=== PATIENT | female | born 1990 | race Caucasian/White ===

== ENCOUNTER 2021-02-10 03:14 | Emergency (ER) | payer BC, MEDICAID, OTHER ==
[~2021-02-10] VITALS: Ht 154.9 cm; Wt 79.4 kg
[2021-02-10 04:26] LABS: Basophils # (auto) 0 10 ^3/uL (0-0.2); Basophils % (auto) 0.2 % (0.0-2.0); Eosinophils # (auto) 0 10 ^3/uL (0-0.8); Eosinophils % (auto) 0.6 % (0.0-7.0); Hematocrit 41.4 % (36.0-46.0); Lymphocytes # (auto) 1.5 10 ^3/uL (0.4-5.4); Lymphocytes % (auto) 24.6 % (10.0-50.0); Mean Corpuscular Hemoglobin 29.7 pg (28.0-32.0); Mean Corpuscular Hgb Conc. 33.8 g/dL (32.0-36.0); Mean Corpuscular Volume 87.7 fL (80.0-100.0); Monocytes # (auto) 0.5 10 ^3/uL (0-1.3); Monocytes % (auto) 8.8 % (0.0-12.0); Neutrophils % (auto) 65.8 % (37.0-80.0); Nucleated Red Blood Cells % 0.1 %; Red Blood Cells 4.72 10^6/uL (4.0-5.20); Red Cell Distribution Width 14.2 % (11.8-14.3); White Blood Cell 6.1 10^3/uL (4.4-10.8)
[2021-02-10 04:33] LABS: Urine Bacteria FEW /hpf (None Seen); Urine Blood Negative /uL (Negative); Urine Mucus FEW (None Seen); Urine Specific Gravity 1.003 (1.001-1.035); Urine WBC 1 /hpf (0 - 5)
[2021-02-10 04:40] LABS: BUN/Creatinine Ratio 13.1; Calcium 8.7 mg/dL (8.5-10.1); Magnesium 2.2 mg/dL (1.6-2.6); Potassium 3.7 mmol/L (3.5-5.1)
[2021-02-10 04:46] LABS: Bilirubin, Total 0.3 mg/dL (0.2-1.0); Total Protein 8.5 g/dL (6.4-8.2)
[2021-02-10 04:54] LABS: Beta HCG, Quantitative < 1 mlU/mL (1-3); Lactate Dehydrogenase 275 U/L (84-246)
[2021-02-10] MEDS ORDERED: cefTRIAXone 1GM/50ML D5W 50 ML IV ONE (07:15)
[2021-02-10] MEDS ORDERED: DexAMETHasone SOD PHOS 10MG/1ML VIAL INJ IV ONE (07:15)
[2021-02-10] MEDS ORDERED: AZITHROMYCIN 500MG/ 250ML 250 ML IV ONE (07:15)
[2021-02-10 10:00] VITALS: BP 111/76
== END 2021-02-10 10:28 | disposition home or self-care (01) ==
LOC: ER 03:14
DX: J45.909 Unspecified asthma, uncomplicated (principal); J06.9 Acute upper respiratory infection, unspecified; R00.0 Tachycardia, unspecified; Z20.822 Contact with and (suspected) exposure to COVID-19
CPT/HCPCS: 36415; 71045; 80053; 81001; 82728; 83605; 83615; 83735; 84484; 84702; 85025; 85379; 87040; 87426; 93005; 96365; 96366; 96367; 96375; 99285; C9803; J0456; J0696; J1100; U0003

== ENCOUNTER 2021-10-30 00:56 | Emergency (ER) | payer MEDICAID ==
[~2021-10-30] VITALS: Ht 152.4 cm; Wt 81.8 kg
[2021-10-30 01:18] VITALS: BP 136/82
[2021-10-30 01:49] LABS: Urine Bacteria FEW /hpf (None Seen); Urine Blood Negative /uL (Negative); Urine Specific Gravity 1.005 (1.001-1.035); Urine WBC 1 /hpf (0 - 5)
[2021-10-30 02:12] LABS: BUN/Creatinine Ratio 14.5; Magnesium 2.3 mg/dL (1.6-2.6); Potassium 3.7 mmol/L (3.5-5.1)
[2021-10-30 02:26] LABS: Bilirubin, Total 0.3 mg/dL (0.2-1.0)
[2021-10-30 02:30] LABS: Basophils # (auto) 0 10 ^3/uL (0-0.2); Basophils % (auto) 0.3 % (0.0-2.0); Eosinophils # (auto) 0.1 10 ^3/uL (0-0.8); Eosinophils % (auto) 1.5 % (0.0-7.0); Hemoglobin 13.4 g/dL (12.2-16.2); Lymphocytes # (auto) 2.5 10 ^3/uL (0.4-5.4); Lymphocytes % (auto) 29.1 % (10.0-50.0); Mean Corpuscular Hemoglobin 29.1 pg (28.0-32.0); Mean Corpuscular Hgb Conc. 32.7 g/dL (32.0-36.0); Monocytes # (auto) 0.5 10 ^3/uL (0-1.3); Monocytes % (auto) 6.2 % (0.0-12.0); Neutrophils # (auto) 5.4 10 ^3/uL (1.6-8.6); Neutrophils % (auto) 62.9 % (37.0-80.0); Red Blood Cells 4.61 10^6/uL (4.0-5.20); Red Cell Distribution Width 13.9 % (11.8-14.3); White Blood Cell 8.6 10^3/uL (4.4-10.8)
== END 2021-10-30 06:44 | disposition left against medical advice (07) ==
LOC: ER 00:56
DX: R07.89 Other chest pain (principal); R06.02 Shortness of breath
CPT/HCPCS: 36415; 80053; 81001; 81025; 83735; 83880; 84484; 85025; 93005

== ENCOUNTER 2025-01-01 01:36 | Emergency (ER) | payer MEDICAID ==
[~2025-01-01] VITALS: Ht 149.9 cm; Wt 92.4 kg
[2025-01-01 02:44] LABS: Hematocrit 38.9 % (36.0-46.0); Hemoglobin 13.2 g/dL (12.2-16.2); Mean Corpuscular Hemoglobin 30.0 pg (28.0-32.0); Mean Corpuscular Volume 88.1 fL (80.0-100.0); Nucleated Red Blood Cells % 0.1 %
--- NOTE | 2025-01-01 02:51 | DVH ---
INDICATION: vag bleed pelvic pain TECHNIQUE: Multiple real-time grayscale transabdominal and transvaginal sonographic images along with color and duplex Doppler of the uterus and ovaries were obtained. COMPARISON: None FINDINGS: The uterus measures 6.5 x 5.3 x 4.1 cm. The endometrial stripe measures 4 mm. 2.5 mm echogenic focus of doubtful clinical consequence. Small nabothian cyst. Right ovary measures 3.1 x 2.2 x 1.8 cm with normal Doppler color flow. Left ovary measures 3 x 1.8 x 1.9 cm with normal Doppler color flow. Physiologic volume of pelvic ascites. IMPRESSION: No acute sonographic abnormality of the pelvis.
[2025-01-01 02:56] LABS: Alanine Aminotransferase 19 U/L (7-40); Albumin 4.5 g/dL (3.2-4.8); Alkaline Phosphatase 53 U/L (46-116); Anion Gap 9 (5-15); BUN/Creatinine Ratio 9.7 (10.0-20.0); Bilirubin, Total 0.3 mg/dL (0.2-1.0); Calcium 9.2 mg/dL (8.7-10.4); Carbon Dioxide 28 mmol/L (20-31); Chloride 104 mmol/L (98-107); Potassium 3.9 mmol/L (3.5-5.1); Sodium 141 mmol/L (136-145); Total Protein 7.6 g/dL (5.7-8.2)
[2025-01-01 03:02] LABS: Blood Urea Nitrogen 6 mg/dL (9-23); Glucose 110 mg/dL (74-106)
--- NOTE | 2025-01-01 03:22 | ED.PDOC ---
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 Patient has been experiencing vaginal bleeding as well as pelvic pain for the past week. Patient is currently taking Oestra medication. Patient states she has not had menstrual cycle for years, has been experiencing heavy bleeding, since yesterday she has been using 1 pad every 1.5 hours. Has not seen OBGYN, has appointment in 2 weeks. Denies fever, chills, dysuria, nausea, vomiting, diarrhea, dizziness, headache, blurred vision. No other symptoms or modifying factors present at this time. Patient has not been having menstrual cycle for at least two years until recently. Initial Vitals BP: 143/94 HR: 109 RR: 18 O2: 99% Temp: 98.2 F Past Medical History: anxiety, ovarian cyst, endometriosis Past Surgical History: [id number] Social History: Denies ETOH, smoking, and drug use. Medications: Oestra Allergies: NKDA HPI: Poor Historian. swegles: Vag bleed , suprapubic pain REVIEW OF SYSTEMS: CONSTITUTIONAL: Denies acute: fever, diaphoresis, chills, generalized weakness. HEAD: Denies acute: headache, photophobia Eyes: Denies acute: Double vision, vision loss, eye pain, eye discharge. EARS: Denies acute: tinnitus, hearing loss, ear discharge, ear pain, THROAT: Denies acute: sore throat, swelling, difficulty swallowing , pain with swallowing, change in voice. NECK: Denies acute: neck pain, neck swelling, stiff neck. HEART: Denies acute : chest pain, palpitations, LUNGS: Denies acute: SOB, wheezing, cough, hemoptysis ABDOMEN: Denies acute: , Nausea, Vomiting, diarrhea, melena , hematemesis, hematochezia SKIN: Denies acute: rash, redness, lesions, itchiness. EXTREMITIES: Denies acute: calf pain, numbness, tingling, weakness, denies pain in extremity. Denies acute: Low back pain. Neuro: Denies acute: focal neurological deficit, motor or sensory focal neurological deficit, tremors, seizure like activity, confusion, dizziness, change in mental status, loss of bowel or bladder function, cauda equina like symptoms. : Denies acute: dysuria, hematuria, flank pain, increase in urinary frequency. PSYCH: Denies acute: hallucination, suicidal ideation, homicidal ideation. FEMALE: Denies acute: foul odor, unusual discharge. PHYSICAL EXAM: General: ------mild--acute distress, awake and alert. Head: normocephalic, atraumatic. Neck: supple, trachea is midline, no swelling. Throat: Normal phonation. Eyes:, no erythema, no purulent discharge, no proptosis, no icterus. Heart: regular rate, regular rhythm, no significant murmur appreciated. Lungs: no apparent respiratory distress, Able to speak in full sentences. No wheezing, no rhonchi, no crackles. No stridors Clear to auscultation bilaterally. Abdomen: Minimal suprapubic tender to palpation, non distended, soft, no guarding, no rebound, + bowel sounds. Neuro: Awake, Alert, oriented to name, self, situation, follows commands GCS=15. Speech is normal. Skin: no petechia, no purpura, no cyanosis, slightly-pale, not jaundice. Lower extremities: --no - Pitting edema no deformity, no focal swelling, no calf TTP. Makes eye contact. moves all four extremities. Face: no apparent facial droop. Ambulating in the ED independently. ED COURSE: DISCLAIMER: This medical document was created using an electronic medical record system with voice recognition software and computerized dictation system. Although this document has been carefully reviewed, there might still be some phonetic and typographical errors. Occasional wrong-word or "sound-alike" substitutions may have occurred due to the inherent limitations of voice recognition software. These areas are purely typographical due to imperfections of the software programs and do not reflect any compromise in the patient's medical care. Please read the chart carefully and recognize, using context, where these substitutions have occurred. 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 Was a procedure done?: No X-Ray, Labs, Meds, VS Vital Signs Date Time Temp Pulse Resp B/P (MAP) Pulse Ox O2 Delivery O2 Flow Rate FiO2 01/01/25 03:57 99.0 98 20 134/86 (102) 98 99.0 01/01/25 01:39 98.2 109 18 143/94 99 98.2 Lab Test 01/01/25 03:53 01/01/25 01:55 Range/Units Urine Color [place] H Yellow Urine Clarity Ex.turbid Clear Urine pH 6.5 5.0-9.0 Urine Specific [place] 1.038 H 1.001-1.035 Urine Protein 2+ H Negative Urine Ketones 1+ H Negative Urine Blood 3+ H Negative /uL Urine Nitrite Negative Negative Urine Bilirubin Negative Negative Urine Urobilinogen Normal Negative mg/dL Urine Leukocyte Esterase 2+ Negative /uL Urine RBC 24895 0 - 4 /hpf Urine Microscopic WBC 33 H 0-5 /HPF Urine Squamous Epithelial Cells None seen <5 /hpf Urine Bacteria None seen None Seen /hpf Urine Glucose Normal Normal mg/dL Urine Test Negative Negative White Blood Count 9.2 4.4-10.8 10^3/uL Red Blood Count 4.42 4.0-5.20 10^6/uL Hemoglobin 13.2 12.2-16.2 g/dL Hematocrit 38.9 36.0-46.0 % Mean Corpuscular Volume 88.1 80.0-100.0 fL Mean Corpuscular Hemoglobin 30.0 28.0-32.0 pg Mean Corpuscular Hemoglobin Concent 34.0 32.0-36.0 g/dL Red Cell Distribution Width 13.2 11.8-14.3 % Platelet Count 330 140-450 10^3/uL Mean Platelet Volume 7.3 6.9-10.8 fL Neutrophils (%) (Auto) 59.0 37.0-80.0 % Lymphocytes (%) (Auto) 32.6 10.0-50.0 % Monocytes (%) (Auto) 7.4 0.0-12.0 % Eosinophils (%) (Auto) 0.8 0.0-7.0 % Basophils (%) (Auto) 0.2 0.0-2.0 % Neutrophils # (Auto) 5.4 1.6-8.6 10 ^3/uL Lymphocytes # (Auto) 3.0 0.4-5.4 10 ^3/uL Monocytes # (Auto) 0.7 0-1.3 10 ^3/uL Eosinophils # (Auto) 0.1 0-0.8 10 ^3/uL Basophils # (Auto) 0 0-0.2 10 ^3/uL Nucleated Red Blood Cells 0.1 % Sodium Level 141 136-145 mmol/L Potassium Level 3.9 3.5-5.1 mmol/L Chloride Level 104 98-107 mmol/L Carbon Dioxide Level 28 20-31 mmol/L Anion Gap 9 5-15 Blood Urea Nitrogen 6 L 9-23 mg/dL Creatinine 0.62 0.550-1.02 mg/dL Glomerular Filtration Rate Calc 118 >90 mL/min BUN/Creatinine Ratio 9.7 L 10.0-20.0 Serum Glucose 110 H 74-106 mg/dL Lactic Acid Level 1.6 0.4-2.0 mmol/L Calcium Level 9.2 8.7-10.4 mg/dL Total Bilirubin 0.3 0.2-1.0 mg/dL Aspartate Amino Transferase (AST) 13 13-40 U/L Alanine Aminotransferase (ALT) 19 7-40 U/L Alkaline Phosphatase 53 46-116 U/L Total Protein 7.6 5.7-8.2 g/dL Albumin 4.5 3.2-4.8 g/dL [address] [address] Ph: [phone] DIAGNOSTIC IMAGING Diagnostic Imaging Report : [id number] Signed PATIENT: MARÍA ELENA WELCH ACCT: [id number] UNIT: [id number] : 1990 LOC: ER ROOM / BED: / AGE / SEX: 34 / F ADM STATUS: REG ER SERVICE 0148 ORDERING PHYSICIAN: JUVENCIO CONDE DO PROCEDURE(s): PELUS - PELVIC REASON: vag bleed pelvic pain ORDER NUMBER(s): [id number], ACCESSION NUMBER(s): [id number] INDICATION: vag bleed pelvic pain TECHNIQUE: Multiple real-time grayscale transabdominal and transvaginal sonographic images along with color and duplex Doppler of the uterus and ovaries were obtained. COMPARISON: None FINDINGS: The uterus measures 6.5 x 5.3 x 4.1 cm. The endometrial stripe measures 4 mm. 2.5 mm echogenic focus of doubtful clinical consequence. Small nabothian cyst. Right ovary measures 3.1 x 2.2 x 1.8 cm with normal Doppler color flow. Left ovary measures 3 x 1.8 x 1.9 cm with normal Doppler color flow. Physiologic volume of pelvic ascites. IMPRESSION: No acute sonographic abnormality of the pelvis. ATED BY: LOLA GARNICA MD DICTATED DATE/TIME: 01/01/25247 SIGNED BY: LOLA GARNICA MD SIGNED DATE/TIME: 01/01/25247 CC: Time of 1ST Reevaluation: 03:35 Reevaluation 1ST: Unchanged Patient Education/Counseling: Diagnosis, Treatment Family Education/Counseling: No Family Present Departure 1 Departure Time of Disposition: 05:17 Impression: Primary Impression: DUB (dysfunctional uterine bleeding) Additional Impression: UTI (urinary tract infection) Disposition: 01 HOME / SELF CARE / HOMELESS Condition: Stable Additional Instructions: Additional instructions: Please read all instructions provided in this packet carefully. You MUST follow-up with your primary care/family doctor in 1 to 2 days. If you are unable to see your primary care/family doctor, please return to our emergency room for re-assessment and re-evaluation in 1 to 2 days. Return to the emergency room here in our facility or to the nearest ER [facility] if your symptoms change or worsen. CONSULTATIONS: you MUST Follow-up for consultation as soon as possible with: --OB Gyne doctor in 1-2 days. Please call for appointment. You MUST call the consultants office yourself to make an appointment. You may need to arrange that through your insurance and/or your primary/family doctor. If you are unable to see the design consultant in 1 to 2 days, you must return to our emergency room (or any other ER of your choice) for re-assessment and re- evaluation. Adequate fluid hydration. Although you have been discharged from the Emergency Department, this does not mean that you have a "clean bill of health". No definitive diagnosis for your symptoms has been made today. It is possible that you are in the process of developing a serious illness. This is why you must return to the ED without fail if any new or worsening symptoms develop. Repeat CBC level of 48-72 hours. Take daily iron supplements Pelvic rest Below is a copy of your radiological report for follow up: [place] [address] Ph: [phone] DIAGNOSTIC IMAGING Diagnostic Imaging Report : [id number] Signed PATIENT: MARÍA ELENA WELCH ACCT: [id number] UNIT: [id number] : 1990 LOC: ER ROOM / BED: / AGE / SEX: 34 / F ADM STATUS: REG ER SERVICE 7 ORDERING PHYSICIAN: JUVENCIO CONDE DO PROCEDURE(s): PELUS - PELVIC REASON: vag bleed pelvic pain ORDER NUMBER(s): [id number], ACCESSION NUMBER(s): [id number] INDICATION: vag bleed pelvic pain TECHNIQUE: Multiple real-time grayscale transabdominal and transvaginal sonographic images along with color and duplex Doppler of the uterus and ovaries were obtained. COMPARISON: None FINDINGS: The uterus measures 6.5 x 5.3 x 4.1 cm. The endometrial stripe measures 4 mm. 2.5 mm echogenic focus of doubtful clinical consequence. Small nabothian cyst. Right ovary measures 3.1 x 2.2 x 1.8 cm with normal Doppler color flow. Left ovary measures 3 x 1.8 x 1.9 cm with normal Doppler color flow. Physiologic volume of pelvic ascites. IMPRESSION: No acute sonographic abnormality of the pelvis. ATED BY: LOLA GARNICA MD DICTATED DATE/TIME: 01/01/25247 SIGNED BY: LOLA GARNICA MD SIGNED DATE/TIME: 01/01/25247 CC: e-Prescriptions Nitrofurantoin Monohydrate Mac (Macrobid) 100 Mg Cap 100 MG PO BID for 7 Days, #14 CAP Prov: JUVENCIO CONDE DO 01/01/25 Discharged With: Self Critical Care Note Critical Care Time?: No I personally scribed for JUVENCIO CONDE DO ([email or web address]) on 01/01/25 at 03:22. Electronically submitted by Stephy Means ([email or web address]). JUVENCIO CONDE DO Jan 01, 2025 03:22
[2025-01-01 05:02] LABS: Urine Protein, UAD 2+ (Negative)
[2025-01-01] MEDS ORDERED: NITR-87 PO (05:18)
[2025-01-01 06:00] VITALS: BP 122/71; TEMP 99.2; O2SAT 96
[2025-01-01 06:10] VITALS: PULSE 76; RESP 18
== END 2025-01-01 05:18 | disposition home or self-care (01) ==
LOC: ER 01:36
DX: N93.8 Other specified abnormal uterine and vaginal bleeding (principal); N39.0 Urinary tract infection, site not specified; J45.909 Unspecified asthma, uncomplicated; F41.9 Anxiety disorder, unspecified; Z79.899 Other long term (current) drug therapy
CPT/HCPCS: 36415; 76830; 76856; 80053; 81001; 81025; 83605; 85025

== ENCOUNTER 2025-01-01 14:30 | Emergency (ER) | payer MEDICAID ==
[~2025-01-01] VITALS: Ht 149.9 cm; Wt 86.5 kg
[~2025-01-01 14:30] MED LIST: NITR-87 PO
[2025-01-01 14:40] VITALS: BP 127/84; PULSE 93; RESP 18; TEMP 98.3; O2SAT 97
== END 2025-01-01 16:12 | disposition left against medical advice (07) ==
LOC: ER 14:30
DX: F41.9 Anxiety disorder, unspecified (principal); R06.02 Shortness of breath; R07.89 Other chest pain; Z53.21 Procedure and treatment not carried out due to patient leaving prior to being seen by health care provider

== ENCOUNTER 2025-01-02 10:01 | Emergency (ER) | payer MEDICAID ==
[~2025-01-02] VITALS: Ht 149.9 cm; Wt 89.6 kg
[2025-01-02 10:09] VITALS: BP 125/76; PULSE 100; RESP 18; TEMP 98.1; O2SAT 98
--- NOTE | 2025-01-02 11:25 | ED.PDOC ---
History of Present Illness HPI Comments A 34 YEAR OLD FEMALE PRESENTS TO THE ED WITH COMPLAINT OF ANXIETY. PATIENT REPORTS SINCE STARTING HER HORMONAL THERAPY TREATMENT, HAS HAD INCREASED ANXIETY. SHE MENTIONS LONG STANDING HX OF DEPRESSION AND TAKES ZOLOFT. PATIENT ALSO MENTIONS VAGINAL BLEEDING X 1 WEEK PROLONG MENSTRUATION WITH NO UA SYMPTOMS REPORTED. PATIENT DENIES FEVER, CHILLS, SHORTNESS OF BREATH, CHEST PAIN, ABDOMINAL PAIN, NAUSEA, VOMITING, HEADACHE, OR OTHER COMPLAINTS. NO OTHER SYMPTOMS OR MODIFYING FACTORS AT THIS TIME. PATIENT IS ALERT, ORIENTED X 4, AND HAS STEADY GAIT. 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, 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 Family History Family History: Reviewed,noncontributory to illness Social History Smoker: Non-Smoker Alcohol: Denies ETOH Use Drugs: Denies Drug Use Lives In: Home Constitutional: denies: chills, diaphoresis, fatigue, fever, malaise, sweats, weakness, others EENTM: denies: blurred vision, double vision, ear bleeding, ear discharge, ear drainage, ear pain, ear ringing, eye pain, eye redness, hearing loss, mouth pain, mouth swelling, nasal discharge, nose bleeding, nose congestion, nose pain, photophobia, tearing, throat pain, throat swelling, voice changes, others Respiratory: denies: cough, hemoptysis, orthopnea, SOB at rest, shortness of breath, SOB with excertion, stridor, wheezing, others Cardiovascular: denies: chest pain, dizzy spells, diaphoresis, Dyspnea on exertion, edema, irregular heart beat, left arm pain, lightheadedness, palpitations, PND, syncope, others Gastrointestinal: denies: abdomen distended, abdominal pain, blood streaked bowels, constipated, diarrhea, dysphagia, difficulty swallowing, hematemesis, melena, nausea, poor appetite, poor fluid intake, rectal bleeding, rectal pain, vomiting, others Genitourinary: reports: abnormal vagina bleeding; denies: burning, dyspareunia, dysuria, flank pain, frequency, hematuria, incontinence, pain, , vagina discharge, urgency, others Neurological: reports: tingling; denies: dizziness, fainting, headache, left sided numbness, left sided weakness, numbness, paresthesia, pre-existing deficit, right sided numbness, right sided weakness, seizure, speech problems, tremors, weakness, others Musculoskeletal: reports: muscle pain; denies: back pain, gout, joint pain, joint swelling, muscle stiffness, neck pain, others Integumetry: denies: bruises, change in color, change in hair/nails, dryness, laceration, lesions, lumps, rash, wounds, others Allergic/Immunocompromised: denies: Difficulty Healing, Frequent Infections, Hives, Itching, others Hematologic/Lymphatic: denies: anemia, blood clots, easy bleeding, easy bruising, swollen glands, others Endocrine: denies: excessive hunger, excessive sweating, excessive thirst, excessive urination, flushing, intolerance to cold, intolerance to heat, un explained weight gain, unexplained weight loss, others Psychiatric: reports: anxiety; denies: bipolar disorder, depression, hopeless, panic disorder, schizophrenia, sleepless, suicidal, others All Other Systems: Reviewed and Negative Physical Exam General Appearance: Mild Distress, Normal, Other (ANXIOUS ) HEENT: Normal ENT Inspection, PERRL/EOMI, Pharynx Normal, TMs Normal Neck: Full Range of Motion, Non-Tender, Normal, Normal Inspection Respiratory: Chest Non-Tender, Lungs Clear, No Accessory Muscle Use, No Respiratory Distress, Normal Breath Sounds Cardiovascular: No Edema, No JVD, No Murmur, No Gallop, Normal Peripheral Pulses, Regular Rate/Rhythm Breast Exam: Deferred Gastrointestinal: No Organomegaly, Non Tender, No Pulsatile Mass, Normal Bowel Sounds, Soft Genitalia: Deferred Pelvic: Normal External Exam, Vaginal Bleeding (MENSTRUAL BLEEDING, NO BLOOD CLOTS. 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 Was a procedure done?: No Differential Dx Considerations may include: ANXIETY, DEPRESSION PROLONG MENSTRUAL PERIOD X-Ray, Labs, Meds, VS Vital Signs Date Time Temp Pulse Resp B/P (MAP) Pulse Ox O2 Delivery O2 Flow Rate FiO2 01/02/25 10:09 98.1 100 18 125/76 98 98.1 Lab Test 01/02/25 11:20 01/02/25 11:12 Range/Units White Blood Count 9.7 4.4-10.8 10^3/uL Red Blood Count 4.45 4.0-5.20 10^6/uL Hemoglobin 13.3 12.2-16.2 g/dL Hematocrit 39.2 36.0-46.0 % Mean Corpuscular Volume 88.2 80.0-100.0 fL Mean Corpuscular Hemoglobin 29.8 28.0-32.0 pg Mean Corpuscular Hemoglobin Concent 33.8 32.0-36.0 g/dL Red Cell Distribution Width 13.4 11.8-14.3 % Platelet Count 334 140-450 10^3/uL Mean Platelet Volume 7.1 6.9-10.8 fL Neutrophils (%) (Auto) 76.8 37.0-80.0 % Lymphocytes (%) (Auto) 17.4 10.0-50.0 % Monocytes (%) (Auto) 5.3 0.0-12.0 % Eosinophils (%) (Auto) 0.3 0.0-7.0 % Basophils (%) (Auto) 0.2 0.0-2.0 % Neutrophils # (Auto) 7.4 1.6-8.6 10 ^3/uL Lymphocytes # (Auto) 1.7 0.4-5.4 10 ^3/uL Monocytes # (Auto) 0.5 0-1.3 10 ^3/uL Eosinophils # (Auto) 0 0-0.8 10 ^3/uL Basophils # (Auto) 0 0-0.2 10 ^3/uL Nucleated Red Blood Cells 0.0 % Sodium Level 141 136-145 mmol/L Potassium Level 3.8 3.5-5.1 mmol/L Chloride Level 103 98-107 mmol/L Carbon Dioxide Level 27 20-31 mmol/L Anion Gap 11 5-15 Blood Urea Nitrogen 8 L 9-23 mg/dL Creatinine 0.59 0.550-1.02 mg/dL Glomerular Filtration Rate Calc 120 >90 mL/min BUN/Creatinine Ratio 13.6 10.0-20.0 Serum Glucose 105 74-106 mg/dL Calcium Level 9.4 8.7-10.4 mg/dL Urine Color Light-red Yellow Urine Clarity Ex.turbid Clear Urine pH 5.5 5.0-9.0 Urine Specific [place] 1.021 1.001-1.035 Urine Protein 1+ H Negative Urine Ketones 3+ H Negative Urine Blood 3+ H Negative /uL Urine Nitrite Negative Negative Urine Bilirubin Negative Negative Urine Urobilinogen Normal Negative mg/dL Urine Leukocyte Esterase 2+ Negative /uL Urine RBC 7669 0 - 4 /hpf Urine Microscopic WBC 431 H 0-5 /HPF Urine Squamous Epithelial Cells Few <5 /hpf Urine Bacteria None seen None Seen /hpf Urine Mucus Few None Seen Urine Glucose Normal Normal mg/dL Urine Test Negative Negative X-Ray, Labs, Meds, VS Comment EXTERNAL MEDICAL RECORDS REVIEWED: [NONE] INDEPENDENT HISTORIANS: [NONE] SOCIAL DETERMINANTS OF HEALTH: [NONE] LABS ORDERED: BMP, CBC, UA, REVIEWED AND INTERPRETED RESULTS: NORMAL IMAGING ORDERED: NONE TREATMENTS ORDERED: PROCEDURES PERFORMED: NONE CRITICAL CARE TIME: NONE I HAVE DISCUSSED THE PATIENT WITH THE ATTENDING PHYSICIAN, DR. STOVALL, HE AGREES WITH THE PATIENT'S PLAN OF CARE AND DISPOSITION. PATIENT ENDED UP ELOPING FROM THE EMERGENCY ROOM. UNABLE TO LOCATE PATIENT IN THE LOBBY. Time of 1ST Reevaluation: 11:22 Reevaluation 1ST: Unchanged Patient Education/Counseling: Diagnosis, Treatment Family Education/Counseling: Diagnosis, Treatment, No Family Present SEPSIS Sepsis Screen Date sepsis recognized/suspect: Jan 02, 2025 Time Sepsis recognized/suspect: 1012 Recent Procedure: No On Antibiotic Therapy: No Respiratory Rate >20: No Heart Rate >90: No Temp<36 C (96.8 F) or >38.3 C: No SBP <90 or MAP <65 mmHG: No New Acute Mental Status Change: No Is the patient on CPAP, BIPAP,: No Vital Signs Date Time Temp Pulse Resp B/P (MAP) Pulse Ox O2 Delivery O2 Flow Rate FiO2 01/02/25 10:09 98.1 100 18 125/76 98 98.1 Laboratory Tests Test 01/02/25 11:20 White Blood Count 9.7 10^3/uL (4.4-10.8) Departure 1 Departure Time of Disposition: 12:52 Impression: Primary Impression: Anxiety Additional Impression: Prolonged menstrual cycle Disposition: LEFT AWOL/ELOPED Condition: Stable Additional Instructions: Critical Care Note Critical Care Time?: No Stability Stability form required: No I personally scribed for YANET DE DIOS ([email or web address]) on 01/02/25 at 11:25. Electronically submitted by Ana Maria Donato ([facility] [place] [facility]). I personally scribed for YANET DE DIOS ([email or web address]) on 01/02/25 at 12:53. Electronically submitted by Ana Maria Donato ([facility] [facility]). YANET DE DIOS Jan 02, 2025 11:25
[2025-01-02 11:43] LABS: Hematocrit 39.2 % (36.0-46.0); Hemoglobin 13.3 g/dL (12.2-16.2); Mean Corpuscular Hemoglobin 29.8 pg (28.0-32.0); Mean Corpuscular Volume 88.2 fL (80.0-100.0); Nucleated Red Blood Cells % 0.0 %
[2025-01-02 11:45] LABS: Urine Protein, UAD 1+ (Negative)
[2025-01-02 11:50] LABS: Chloride 103 mmol/L (98-107); Potassium 3.8 mmol/L (3.5-5.1); Sodium 141 mmol/L (136-145)
[2025-01-02 11:52] LABS: Anion Gap 11 (5-15); Calcium 9.4 mg/dL (8.7-10.4); Carbon Dioxide 27 mmol/L (20-31)
[2025-01-02 11:57] LABS: BUN/Creatinine Ratio 13.6 (10.0-20.0); Glucose 105 mg/dL (74-106)
[2025-01-02 11:58] LABS: Blood Urea Nitrogen 8 mg/dL (9-23)
== END 2025-01-02 12:40 | disposition left against medical advice (07) ==
LOC: ER 10:01
DX: N92.0 Excessive and frequent menstruation with regular cycle (principal); F41.9 Anxiety disorder, unspecified; J45.909 Unspecified asthma, uncomplicated; Z79.899 Other long term (current) drug therapy
CPT/HCPCS: 36415; 80048; 81001; 81025; 85025